=== PATIENT | male | born 1995 | race Caucasian/White ===

== ENCOUNTER 2017-01-02 08:10 | Outpatient (RCR) | payer OTHER | END 2017-03-21 08:47 | LOC: WSOH 08:10 | DX: Z77.21 Contact with and (suspected) exposure to potentially hazardous body fluids (principal); Y99.0 Civilian activity done for income or pay ==

== ENCOUNTER → 2018-01-30 | Outpatient (CLI) | payer OTHER | LOC: COL.RAD 10:26 | DX: N43.3 Hydrocele, unspecified (principal); I86.1 Scrotal varices ==